=== PATIENT | male | born 1935 | race Caucasian/White ===

== ENCOUNTER 2018-11-02 15:50 | Emergency (ER) | payer MEDICARE ==
--- OUTSIDE RECORDS SUMMARY | 2018-11-02 15:52 | XMS REPORT ---
:1935 [facility] Organization [facility] Address [address] [place] [address] Dr. Wheeler [address] [place] [id number] Care Team Providers Name Role Phone Unavailable Unavailable Unavailable Problems This patient has no known problems. Allergies, Adverse Reactions, Alerts This patient has no known allergies or adverse reactions. Medications This patient has no known medications.
--- OUTSIDE RECORDS SUMMARY | 2018-11-02 15:53 | XMS REPORT | Summary of Care ---
:1935 Author Organization [facility] Address [address] [place] [address] Care Team Providers Name Role Phone Devin Welch MD Insurance Hmo Raquel Jenkins MD Primary Care Provider Reason for Referral MRI/CAT Scan (STAT) Status Reason Specialty Diagnoses / Referred By Referred To Procedures Contact Contact New Request Diagnostic Diagnoses Altered mental status, unspecified altered mental status type Geovani Layton, Radiology Procedures CT HEAD WO CONTRAST [address] [place] [address] [place] [address] MRI/CAT Scan (STAT) Status Reason Specialty Diagnoses / Referred By Referred To Procedures Contact Contact New Request Diagnostic Diagnoses Altered mental status, unspecified altered mental status type Geovani Layton, Radiology Procedures CT HEAD WO CONTRAST [address] [place] [address] [place] [address] Reason for Visit Reason Comments Altered mental status Auth/Cert Status Reason Specialty Diagnoses / Referred By Referred To Procedures Contact Contact Emergency Medicine Diagnoses [facility] Emergency Dept [address] [place] [address] [place] [address] Encounter Details Date Type Department Care Team Description 09/06/2018 Emergency ADC-Emergency Geovani Layton MD Altered mental status, unspecified altered mental status type (Primary Dx); Department [address] [facility] Dehydration [address] [place] [address] [address] [place] [id number] [place] [id number] [phone] Allergies No Known Allergiesdocumented as of this encounter (statuses as of 09/06/2018) Medications Medication Sig Dispensed Refills Start Date End Date Status cholecalciferol, vitamin Take 1,000 Units 0 Active D3, (VITAMIN D3) 1,000 by mouth daily. unit tabletIndications: Vitamin D deficiency MULTIVIT-MIN/FOLIC/VIT Take by mouth 0 Active K/LYCOP (ONE-A-DAY MEN'S daily. MULTIVITAMIN ORAL) finasteride 5 mg tablet Take 1 tablet by 90 tablet 3 02/09/2018 Active mouth daily. vitamin B-6 (VITAMIN Take 100 mg by 0 Active B-6) 100 mg tablet mouth daily. buPROPion XL (WELLBUTRIN Take 1 tablet by 90 tablet 3 03/22/2018 Active XL) 150 mg 24 hr mouth daily. tabletIndications: Other depression, Severe dementia levothyroxine 50 mcg Take 1 tablet by 90 tablet 3 04/06/2018 Active tabletIndications: mouth every Acquired hypothyroidism morning. levoFLOXacin 500 mg Take 1 tablet by 14 tablet 3 08/04/2018 Active tabletIndications: mouth every 24 Recurrent UTI (twenty-four) hours. documented as of this encounter (statuses as of 09/06/2018) Active Problems Problem Noted Date Gross hematuria 02/07/2018 Hematuria 02/07/2018 Other specified hypothyroidism 10/07/2015 Essential hypertension 10/07/2015 Agitation 10/07/2015 Vitamin D deficiency 10/07/2015 BPH (benign prostatic hyperplasia) Overview: had recurrent UTIs, then had stones and urethra dilated??? documented as of this encounter (statuses as of 09/06/2018) Immunizations Name Administration Dates Next Due Influenza High Dose 11/18/2017, 12/23/2016 Influenza Virus Vaccine 11/20/2015 Pneumococcal 13 Conjugate, PCV13 (Prevnar 13) 04/04/2016 Pneumococcal Polysaccharide, PPSV23 (PNEUMOVAX) 06/10/2017 documented as of this encounter Social History Tobacco Use Types Packs/Day Years Used Date Never Smoker Smokeless Tobacco: Never Used Alcohol Use Drinks/Week oz/Week Comments No Sex Assigned at Date Recorded Not on file Job Start Date Occupation Industry Not on file Not on file Not on file Travel History Travel Start Travel End No recent travel history available. 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 Altered mental status, unspecified altered mental status type R41.82 780.97 2. Dehydration E86.0 276.51 NO LIFE-THREATENING FINDINGS ON TODAY'S EXAM. YOUR PRESCRIPTIONS : Check out SHADOW for medication discounts Medication List ASK your doctor about these medications buPROPion XL 150 mg 24 hr tablet Commonly known as: WELLBUTRIN XL Take 1 tablet by mouth daily. finasteride 5 mg tablet Commonly known as: PROSCAR Take 1 tablet by mouth daily. levoFLOXacin 500 mg tablet Commonly known as: LEVAQUIN Take 1 tablet by mouth every 24 (twenty-four) hours. levothyroxine 50 mcg tablet Commonly known as: SYNTHROID Take 1 tablet by mouth every morning. ONE-A-DAY MEN'S MULTIVITAMIN ORAL VITAMIN B-6 100 mg tablet Generic drug: vitamin B-6 VITAMIN D3 1,000 unit tablet Generic drug: cholecalciferol (vitamin D3) ER precautions and follow up : 1. Return to ER if your symptoms should worsen or fail to improve within 72 hours. 2. The care provided in the emergency room was for acute problems only. 3. You should follow up with your primary care provider within 72 hours. 4. Fill and take all your medications as prescribed. 5. Make sure you are staying adequately hydrated. Busque attencion immediatamente si usted tiene los sitomas sigue, vuelve peor o si hay sitomas nuevas o para cualquiera preoccupacion incluyendo dolor del pecho , falta aire, se siente debile, mas fievre, mas dolor, nausea, vomitando, sangrando que no es normal, confusion, baja or pierdas conciencia. MAY FOLLOW-UP WITH A PROVIDER OF YOUR CHOICE, SUCH : 1. A PHYSICIAN OF YOUR CHOICE 2. [facility], . LOCATIONS IN [facility] 3. [facility], [address] [place] [address]; [phone] OR, IF YOU WISH TO FOLLOW-UP WITHIN THE [facility], MAY TRY THESE OPTIONS (CLINIC APPOINTMENTS AVAILABLE ON [id number] BASIS): 1. SCHEDULE AN APPOINTMENT ONLINE AT WWW.[facility] 2. OR CALL THE [facility] AT OR 3. OR CALL YOUR [facility] PHYSICIAN'S OFFICE DIRECTLY IF YOU ARE ALREADY AN ESTABLISHED [facility] PATIENT. [facility] RETURN TO WORK / SCHOOL EXCUSE Jian Jackson WAS SEEN IN THE ER AND DISCHARGED 09/06/2018 TODAY, 11:15 PM & May return to Work / School / Incarceration on X with activity as tolerated indicated below. ___The following limitations apply until pt is seen by Physician and cleared to return to normal activity. _X_ Off for two days and return to activity as tolerated at work or school ___ No Sports ___ No work ___ Do not return until fever free for 24 hours. ___ No school GEOVANI LAYTON Jr., MD [facility] EMERGENCY DEPRTMENT [address] [place] [address] [place] [address] ### The patient may have been given Narcotic pain medications during their stay in the ED that may show up on a Drug Screen. The hospital discharge paper work will identify these medications. AttachmentsThe following attachments cannot be sent through Care Everywhere.Confusion (Nigerien)Dehydration (Adult) (Nigerien)documented in this encounter Plan of Treatment Date Type Specialty Care Team Description 12/04/2018 Office Visit Internal Medicine Raquel Jenkins MD [address] [place] [address] [address], [place] [address] [phone] Name Type Priority Associated Diagnoses Date/Time CT HEAD WO CONTRAST IMAGING STAT Altered mental status, 09/06/2018 9:17 PM CDT unspecified altered mental status type Health Maintenance Due Date Last Done Comments Medicare Wellness Visit 2002 INFLUENZA VACCINE 10/11/2018 11/18/2017, 12/23/2016, 11/20/2015, Additional history exists DTaP,Tdap,and Td Vaccines 02/19/2019 Postponed from (1 - Tdap) 1956 (Insurance / Financial) Zoster Recombinant Vaccine 02/19/2019 Postponed from (SHINGRIX) (1 of 2) 10/23/1987 (Insurance / Financial) PNEUMOCOCCAL VACCINES 65+ Completed 06/10/2017, 04/04/2016 documented as of this encounter Procedures Procedure Name Priority Date/Time Associated Diagnosis Comments ETHANOL STAT 09/06/2018 10:20 Altered mental Results for this PM CDT status, unspecified procedure are in altered mental the results status type section. BASIC METABOLIC STAT 09/06/2018 10:20 Altered mental Results for this PANEL (NA, K, CL, PM CDT status, unspecified procedure are in CO2, GLUCOSE, BUN, altered mental the results CREATININE, CA) status type section. HEPATIC FUNCTION STAT 09/06/2018 10:20 Altered mental Results for this PANEL ([id number]) PM CDT status, unspecified procedure are in (ALB,T.PRO,BILI altered mental the results T,BU/BC,ALT,AST,ALK status type section. PHOS) THYROID STIMULATING STAT 09/06/2018 10:20 Altered mental Results for this HORMONE PM CDT status, unspecified procedure are in altered mental the results status type section. FREE T4 STAT 09/06/2018 10:20 Altered mental Results for this PM CDT status, unspecified procedure are in altered mental the results status type section. TROPONIN I STAT 09/06/2018 10:20 Altered mental Results for this PM CDT status, unspecified procedure are in altered mental the results status type section. LIPASE STAT 09/06/2018 10:20 Altered mental Results for this PM CDT status, unspecified procedure are in altered mental the results status type section. ADC / [facility] - DRUG STAT 09/06/2018 9:43 Altered mental Results for this SCREEN TRIAGE PM CDT status, unspecified procedure are in altered mental the results status type section. URINALYSIS STAT 09/06/2018 9:43 Altered mental Results for this PM CDT status, unspecified procedure are in altered mental the results status type section. CT HEAD WO CONTRAST STAT 09/06/2018 9:17 Altered mental PM CDT status, unspecified altered mental status type Procedure Note - [facility], Radiant Results Inft User - 09/06/2018 9:27 PM CDT * * * * * * * * ORIGINAL REPORT * * * * * * * * EXAM: CT HEAD WO CONTRAST HISTORY: Altered mental status (AMS), unclear cause COMPARISON: CT head dated 12/31/2016. TECHNIQUE: CT head was obtained and reconstructed into axial, coronal and sagittal projection images. FINDINGS: Focal soft tissue swelling and increased density is seen at the vertex. No calvarial fracture is identified. Symmetric prominence of the caliber sulci and ventricles, commensurate with the moderate observed degree of central cerebral volume loss. Cerebellar volume loss is also noted. No hydrocephalus, midline shift or pathological extra-axial fluid collection is present. The basal cisterns are unremarkable. There is no acute intracranial hemorrhage or significant mass effect. No parenchymal attenuation abnormality. The gupta-white matter differentiation is preserved. The mastoid air cells and paranasal air sinuses are clear. The central skull base is unremarkable. Scattered atherosclerotic calcifications affect the carotid siphons. IMPRESSION Small scalp hematoma is seen at the vertex without underlying calvarial defect. No acute intra-abdominal abnormality is identified. Moderate cerebral and cerebellar volume loss. CBC WITH DIFFERENTIAL STAT 09/06/2018 9:07 PM Altered mental Results for this CDT status, unspecified procedure are in altered mental the results status type section. ACTIVATED PARTIAL STAT 09/06/2018 9:07 PM Altered mental Results for this THRMPLAS MARTHA CDT status, unspecified procedure are in altered mental the results status type section. PROTHROMBIN TIME / STAT 09/06/2018 9:07 PM Altered mental Results for this INR CDT status, unspecified procedure are in altered mental the results status type section. CBC WITH DIFF Routine 09/06/2018 9:07 PM Altered mental Results for this CDT status, unspecified procedure are in altered mental the results status type section. documented in this encounter Results ETHANOL (09/06/2018 10:20 PM CDT) ALCOHOL <10 mg/dL [facility] Specimen Blood - VENOUS Narrative Performed At <10 Negative [facility] 50-100 Toxic >100 Depression of PRIVATE CLIENT ADVISOR >400 Fatalities Reported Performing Organization Address [facility] [place] Phone Number [facility] CLIA: [id number], [address] [place] [address] FREE T4 (09/06/2018 10:20 PM CDT) FREE T4 1.37 0.78 - 2.20 ng/dL [facility] Specimen Blood - VENOUS Performing Organization Address [facility] [place] Phone Number [facility] CLIA: [id number], [address] [place] [address] THYROID STIMULATING HORMONE (09/06/2018 10:20 PM CDT) TSH 2.67 0.45 - 4.70 mIU/L [facility] Specimen Blood - VENOUS Performing Organization Address [facility] [place] Phone Number [facility] CLIA: [id number], [address] [place] [address] Troponin I (09/06/2018 10:20 PM CDT) TROPONIN I 0.031 <=0.034 ng/mL [facility] Specimen Blood - VENOUS Narrative Performed At Equal or Less than 0.034 ng/ml---Normal [facility] Note: Cardiac troponin begins to rise 3-4 hours after the onset of ischemia. Repeat in 4-6 hours if the sample was drawn within 3-4 hours of the onset of the symptom and found normal. Between 0.035 and 0.120 ng/mL--- Borderline. Questionable myocardial injury or necrosis Note: Serial measurement may be necessary to confirm or exclude the diagnosis of myocardial injury or necrosis; Clinical correlation (symptoms, EKGs, imaging studies, and others) required; Repeat in 4-6 hours if clinically indicated. Equal or Higher than 0.121 ng/mL---Abnormal. Myocardial Injury or Necrosis Likely Biotin has been reported to cause a negative bias, interpret results relative to patient's use of biotin. Performing Organization Address [facility] [place] Phone Number [facility] CLIA: [id number], [address] [place] [address] Lipase Serum (09/06/2018 10:20 PM CDT) LIPASE 77 0 - 220 U/L [facility] Specimen Blood - VENOUS Performing Organization Address City/[facility] Phone Number [facility] CLIA: [id number], [address] [place] [address] Hepatic Function Panel (ALB, T.PRO, BILI T, BU/BC, ALT, AST, ALK PHOS) (2018 10:20 PM CDT) TOTAL BILI 0.7 0.1 - 1.1 mg/dL [facility] BILI UNCON 0.6 0.1 - 1.1 mg/dL [facility] BILI CONJ 0.0 0.0 - 0.3 mg/dL [facility] T PROTEIN 7.4 6.3 - 8.2 g/dL [facility] ALBUMIN 3.8 3.5 - 5.0 g/dL [facility] ALK PHOS 82 34 - 122 U/L [facility] ALT(SGPT) 17 9 - 51 U/L [facility] AST(SGOT) 24 13 - 40 U/L [facility] Specimen Blood - VENOUS Performing Organization Address City/[facility] Phone Number [facility] CLIA: [id number], [address] [place] [address] Basic Metabolic Panel (NA, K, CL, CO2, GLUCOSE, BUN, CREATININE, CA) (2018 10:20 PM CDT) Pathologist [facility] NA 143 135 - 145 [facility] mmol/L [facility] K 4.4 3.5 - 5.0 [facility] mmol/L [facility] CL 108 98 - 108 mmol/L [facility] CO2 TOTAL 28 23 - 31 mmol/L [facility] AGAP 7 2 - 16 [facility] BUN 21 7 - 23 mg/dL [facility] GLUCOSE 113 (H) 70 - 110 mg/dL [facility] CREATININE 1.12 0.60 - 1.25 [facility] mg/dL [facility] CALCIUM 9.6 8.6 - 10.6 [facility] mg/dL HOSPITAL LABORATORY eGFR Calculation 63.1 mL/min/1.73m2 [facility] (Non-[facility] LABORATORY Citizen [place]) eGFR Calculation 76.5 mL/min/1.73m2 [facility] () [facility] Specimen Blood - VENOUS Narrative Performed At Association of Glomerular Filtration Rate (GFR) [facility] and Staging of Kidney Disease* + + +- + | GFR (mL/min/1.73 m2)| With Kidney Damage|Without Kidney Damage + + +- + |>90| Stage one| Normal + + +- + |60-89|S tage two| Decreased GFR + + +- + |30-59|S tage three| Stage three + + +- + |15-29|S tage four | Stage four + + +- + |<15 (or dialysis)|Stage five | Stage five + + +- + *Each stage assumes the associated GFR level has been in effect for at least three months.Stages 1 to 5, with or without kidney disease, indicate chronic kidney disease. Notes: Determination of stages one and two (with eGFR >59mL/min/1.73 m2) requires estimation of kidney damage for at least three months as defined by structural or functional abnormalities of the kidney, manifested by either: Pathological abnormalities or Markers of kidney damage (including abnormalities in the composition of the blood or urine or abnormalities in imaging tests). Performing Organization Address City/State/Zipcode Phone Number [facility] CLIA: [id number], [address] [place] [address] ADC / [facility] - DRUG SCREEN TRIAGE (09/06/2018 9:43 PM CDT) BENZO U Negative Negative [facility] IRIS U Negative Negative [facility] AMPHET Negative Negative [facility] THC Negative Negative [facility] METHADONE Negative Negative [facility] Meth U Negative Negative [facility] OPIATES Presumptive Negative [facility] Positive (A) HOSPITAL [facility] Cocaine Metabolite Negative Negative [facility] PROPOXY Negative Negative [facility] Tric U Negative Negative [facility] PCP Negative Negative [facility] OXYCOD Negative Negative [facility] Specimen Urine - URINE, CLEAN CATCH Narrative Performed At Urine Drug Cutoff Ranges [facility] Benzodiazepines: 150 ng/mL Barbiturates: 200 ng/mL Amphetamine: 500 ng/mL Cannabinoids: 50ng/mL Methadone: 200 ng/mL Methamphetamine: 500 ng/mL Opiates: 100 ng/mL or 2000 ng/mL Cocaine: 150 ng/mL Propoxyphene:300 ng/mL Tricyclics:300 ng/mL Oxycodone: 100 ng/mL PCP: 25ng/mL The results are to be used only for medical (i.e., treatment) purposes. Unconfirmed screening results must not be used for non-medical purposes (e.g., employment testing, legal testing). Performing Organization Address [facility] [place] Phone Number [facility] CLIA: [id number], [address] [place] [address] Urinalysis (09/06/2018 9:43 PM CDT) APPEARANCE Clear Clear [facility] COLOR Yellow Yellow [facility] PH 5.5 4.8 - 8.0 [facility] SP GRAVITY >=1.030 1.003 - 1.030 [facility] GLU U QUAL Negative Negative [facility] BLOOD Negative Negative [facility] KETONES 15 mg/dL (A) Negative [facility] PROTEIN 30 mg/dL (A) Negative [facility] UROBILIN 0.2 mg/dL 0-1.0 mg/dL [facility] BILIRUBIN Negative Negative [facility] NITRITE Negative Negative [facility] LEUK LEONEL Negative Negative [facility] RBC/HPF 5 (H) 0 - 3 HPF [facility] WBC/HPF 5 0 - 5 HPF [facility] BACTERIA Few (A) Negative [facility] MUCOUS Slight (A) Negative LPF [facility] AMORPHOUS Few HPF [facility] SQ EPITH 30 HPF [facility] Specimen Urine - URINE, CLEAN CATCH Performing Organization Address [facility] [place] Phone Number [facility] CLIA: [id number], [address] [place] [address] CBC WITH DIFFERENTIAL (09/06/2018 9:07 PM CDT) WBC 5.96 4.20 - 10.70 [facility] 10*3/L HOSPITAL LAB[facility]ATORY RBC 4.95 4.26 - 5.52 [facility] 10*6/L [facility] HGB 13.9 12.2 - 16.4 [facility] g/dL [facility] HCT 37.9 (L) 38.4 - 49.3 % [facility] MCV 76.6 (L) 81.7 - 95.6 fL [facility] MCH 28.1 26.1 - 32.7 pg [facility] MCHC 36.7 (H) 31.2 - 35.0 [facility] g/dL [facility] RDW-SD 41.7 38.5 - 51.6 fL [facility] RDW-CV 15.1 12.1 - 15.4 % [facility] PLT 148 (L) 150 - 328 [facility] 10*3/L [facility]PITAL [facility] MPV 10.8 9.8 - 13.0 fL [facility] NRBC/100 WBC 0.0 0.0 - 10.0 /100 [facility] WBCs [facility] NRBC x10^3 <0.01 10*3/L [facility] GRAN MAT (NEUT) % 74.6 % [facility] IMM GRAN % 0.20 % [facility] LYMPH % 14.9 % [facility] MONO % 9.9 % [facility] EOS % 0.2 % [facility] BASO % 0.2 % [facility] GRAN MAT x10^3(ANC) 4.45 1.99 - 6.95 [facility] 10*3/uL [facility]ITAL [facility] IMM GRAN x10^3 <0.03 0.00 - 0.06 [facility] 10*3/uL [facility] LYMPH x10^3 0.89 (L) 1.09 - 3.23 [facility] 10*3/uL [facility] MONO x10^3 0.59 0.36 - 1.02 [facility] 10*3/uL [facility]ITAL LAB[facility]ORY EOS x10^3 <0.03 (L) 0.06 - 0.53 [facility] 10*3/uL [facility] BASO x10^3 <0.03 0.01 - 0.09 [facility] 10*3/uL [facility] Specimen Blood - VENOUS Performing Organization Address City/State/Zipcode Phone Number [facility] CLIA: [id number], [address] [place] [address] Prothrombin Time (PT) / INR (09/06/2018 9:07 PM CDT) PROTIME PATIENT 13.5 12.0 - 14.7 [facility] Seconds [facility] INR 1.1Comment: Normal [facility] INR <1.1; Warfarin HOSPITAL Therapeutic range LABORATORY 2.0 to 3.0 or 2.5 to 3.5, depending upon the indications. Specimen Blood - VENOUS Performing Organization Address [facility] Phone Number [facility] CLIA: [id number], [address] [place] [address] aPTT (09/06/2018 9:07 PM CDT) APTT Patient 27 23 - 38 Seconds [facility] Specimen Blood - VENOUS Narrative Performed At The [facility] patient population mean normal value [facility] [facility] for aPTT is 30 seconds. Performing Organization Address [facility] Phone Number [facility] CLIA: [id number], [address] [place] [address] [facility] documented in this encounter Visit Diagnoses Diagnosis Altered mental status, unspecified altered mental status type - Primary Dehydration documented in this encounter Administered Medications Medication Order MAR Action Action Date Dose Rate Site NaCl 0.9% (NS) bolus New Bag 09/06/2018 10:52 PM CDT 1,000 mL 999 mL/hr infusion 1,000 mL at 999 mL/hr, 1,000 mL, IV Infusion, ONCE, 1 dose, 09/07/18 at 0000, STAT documented in this encounter Insurance Payer Benefit Plan / Subscriber ID Effective Phone Address Type Group Dates [employer] MEDICARE [id number] 2016-Prese Medicare Adv HEALTHCARE - COMPLETE [facility] MEDICARE documented as of this encounter"
--- OUTSIDE RECORDS SUMMARY | 2018-11-02 15:53 | XMS REPORT | Summary of Care ---
:1935 Author Organization [facility] - Health Address [address] [place] [id number] Care Team Providers Name Role Phone Devin Welch MD Insurance Hmo Raquel Jenkins MD Primary Care Provider Reason for Visit Reason Comments Notification Encounter Details Date Type Department Care Team Description 09/18/2018 Telephone [facility] Pediatric and Raquel Jenkins, Notification Adult Primary Care- [place] [address] [place] [address] [address] [facility] [address], [address] [place] [address] [place] [address] Allergies No Known Allergiesdocumented as of this encounter (statuses as of 09/18/2018) Medications Medication Sig Dispensed Refills Start Date End Date Status cholecalciferol, Take 1,000 0 Suspended vitamin D3, (VITAMIN Units by mouth D3) 1,000 unit daily. tabletIndications: Vitamin D deficiency MULTIVIT-MIN/FOLIC/VIT Take by mouth 0 Suspended K/LYCOP (ONE-A-DAY daily. MEN'S MULTIVITAMIN ORAL) finasteride 5 mg tablet Take 1 tablet 90 tablet 3 02/09/2018 Suspended by mouth daily. vitamin B-6 (VITAMIN Take 100 mg by 0 Suspended B-6) 100 mg tablet mouth daily. buPROPion XL Take 1 tablet 90 tablet 3 03/22/2018 Suspended (WELLBUTRIN XL) 150 mg by mouth 24 hr daily. tabletIndications: Other depression, Severe dementia levothyroxine 50 mcg Take 1 tablet 90 tablet 3 04/06/2018 Suspended tabletIndications: by mouth every Acquired hypothyroidism morning. levoFLOXacin 500 mg Take 1 tablet 14 tablet 3 08/04/2018 Suspended tabletIndications: by mouth every Recurrent UTI 24 (twenty-four) hours. ZINC ORAL Take 25 mg by 0 Suspended mouth daily. documented as of this encounter (statuses as of 09/18/2018) Active Problems Problem Noted Date Elevated troponin 09/18/2018 Gross hematuria 02/07/2018 Hematuria 02/07/2018 Other specified hypothyroidism 10/07/2015 Essential hypertension 10/07/2015 Agitation 10/07/2015 Vitamin D deficiency 10/07/2015 BPH (benign prostatic hyperplasia) Overview: had recurrent UTIs, then had stones and urethra dilated??? documented as of this encounter (statuses as of 09/18/2018) Immunizations Name Administration Dates Next Due Influenza [...] of this encounter Last Filed Vital Signs Not on filedocumented in this encounter Plan of Treatment Date Type Specialty Care Team Description 12/04/2018 Office Visit Internal Medicine Raquel Jenkins MD [address] [place] [address] Dr [address] [place] [id number] Health Maintenance Due Date Last Done Comments Medicare Wellness Visit 2002 INFLUENZA VACCINE 10/11/2018 11/18/2017, 12/23/2016, 11/20/2015, Additional history exists DTaP,Tdap,and Td Vaccines 02/19/2019 Postponed from (1 - Tdap) 1956 (Insurance / Financial) Zoster Recombinant Vaccine 02/19/2019 Postponed from ([facility]) (1 of 2) 10/23/1987 (Insurance / Financial) PNEUMOCOCCAL VACCINES 65+ Completed 06/10/2017, 04/04/2016 documented as of this encounter Results Not on filedocumented in this encounter Insurance Payer Benefit Plan / Subscriber ID Effective Phone Address Type Group Dates [employer] MEDICARE [id number] 2016-Prese Medicare Adv HEALTHCARE - COMPLETE nt HMO MANAGED MEDICARE documented as of this encounter
--- OUTSIDE RECORDS SUMMARY | 2018-11-02 15:53 | XMS REPORT | Summary of Care ---
:1935 Author Organization [facility] - Health Address [address] [place] [address] Care Team Providers Name Role Phone Devin Welch MD Insurance Hmo Raquel Jenkins MD Primary Care Provider Reason for Referral (Routine) Status Reason Specialty Diagnoses / Referred By Referred To Procedures Contact Contact New Request Diagnoses Confusion Haider Eden MBBS Syst, Procedures Discharge Follow-up: PCP REFERRING/PCP PROV NOT IN SYST; [address] [place] [address] Referring/Pcp [place] [address] Reason for Visit Reason Comments Confusion Auth/Cert Status Reason Specialty Diagnoses / Referred By Referred To Procedures Contact Contact Emergency Medicine Diagnoses [facility] Emergency Dept [address] [place] [address] [place] [address] Encounter Details Date Type Department Care Team Description 09/18/2018 - Emergency [facility] Medicine Surgery Gretel Rodas, DO [address], [place] [id number] Elevated troponin 09/21/2018 Unit Haider Eden MBBS [address] [place] [address] [place] [address] [place], [place] [id number] Allergies No Known Allergiesdocumented as of this encounter (statuses as of 09/21/2018) Medications Medication Sig Dispensed Refills Start Date [...] mouth every 24 Recurrent UTI (twenty-four) hours. ZINC ORAL Take 25 mg by 0 Active mouth daily. documented as of this encounter (statuses as of 09/21/2018) Active Problems Problem Noted Date Elevated troponin 09/18/2018 Gross hematuria 02/07/2018 Hematuria 02/07/2018 Other specified hypothyroidism 10/07/2015 Essential hypertension 10/07/2015 Agitation 10/07/2015 Vitamin D deficiency 10/07/2015 BPH (benign prostatic hyperplasia) Overview: had recurrent UTIs, then had stones and urethra dilated??? documented as of this encounter (statuses as of 09/21/2018) Immunizations Name Administration Dates Next Due Influenza [...] Sign Reading Time Taken Comments Blood Pressure 101/65 09/21/2018 3:58 PM CDT Pulse 77 09/21/2018 3:58 PM CDT Temperature 37.1 C (98.8 F) 09/21/2018 3:58 PM CDT Respiratory Rate 18 09/21/2018 3:58 PM CDT Oxygen Saturation 99% 09/21/2018 3:58 PM CDT Inhaled Oxygen Concentration - - Weight 80.7 kg (178 lb) 09/18/2018 10:03 AM CDT Height 188 cm (6' 2") 09/18/2018 10:03 AM CDT Body Mass Index 22.85 09/18/2018 10:03 AM CDT documented in this encounter Discharge Instructions Lala Culver RN - 09/21/2018 Patient Discharge Instructions Discharge date: 09/21/2018 Procedure(s): Discharge Orders Discharge Follow-up: PCP REFERRING/PCP PROV NOT IN SYST; 1 Week To PCP: REFERRING/PCP PROV NOT IN SYST [[id number]] Patient's Preferred Location: [place] Discharge Disposition: Senior Care Resident, (ATI) When (Patients with risk for unplanned readmission score over 16 or those noted as Hospital Dependent should follow up within 7 days with PCP or primary DX specialist): 1 Week Risk of Unplanned Readmission:( Score greater than 16 indicates high risk) 8 Regular Diet; Texture: Regular. Texture Regular. Diabetic: No Discharge Condition - Discharge Condition: FAIR Discharge Activity Discharge Activity: As Tolerated No VTE Prophylaxis given- Patient low risk for VTE; Not ordered during hospitalization Take Home Medications These are medications ordered for you by your healthcare provider. Do not take any other medications or supplements unless advised by your healthcare provider. Current Discharge Medication List CONTINUE these medications which have NOT CHANGED Details ZINC ORAL Take 25 mg by mouth daily. levoFLOXacin 500 mg tablet Take 1 tablet by mouth every 24 (twenty-four) hours. Qty: 14 tablet, Refills: 3 Associated Diagnoses: Recurrent UTI levothyroxine 50 mcg tablet Take 1 tablet by mouth every morning. Qty: 90 tablet, Refills: 3 Associated Diagnoses: Acquired hypothyroidism buPROPion XL (WELLBUTRIN XL) 150 mg 24 hr tablet Take 1 tablet by mouth daily. Qty: 90 tablet, Refills: 3 Associated Diagnoses: Other depression; Severe dementia vitamin B-6 (VITAMIN B-6) 100 mg tablet Take 100 mg by mouth daily. finasteride 5 mg tablet Take 1 tablet by mouth daily. Qty: 90 tablet, Refills: 3 MULTIVIT-MIN/FOLIC/VIT K/LYCOP (ONE-A-DAY MEN'S MULTIVITAMIN ORAL) Take by mouth daily. cholecalciferol, vitamin D3, (VITAMIN D3) 1,000 unit tablet Take 1,000 Units by mouth daily. Associated Diagnoses: Vitamin D deficiency Follow-up appointments: Your follow up appointment with your surgeon has been made. Appointment Date: , Appointment Time . For questions regarding follow-up instructions call the Healthcare Hotline at or If you experience any of the following symptoms , please follow up with . For worsening symptoms/changing condition/problems or questions: Non-emergency/urgent: Call the Healthcare Hotline at or or Emergency: Go to the closest emergency room or call 911 Translated by Date Time If you receive the patient satisfaction survey by mail please complete and return and let us know how we are doing. TOBACCO AVOIDANCE Exposure to tobacco either from smoking or from second hand (environmental) smoke or smokeless tobacco (snuff) is damaging to your health. This information is to encourage everyone to avoid tobacco exposure. It is recommended that you: ? If you smoke or use smokeless tobacco, we encourage you to quit. ? If you have already quit smoking, continue your good work! ? If you do not smoke or use smokeless tobacco, do not start. ? Avoid secondhand smoke. Additional Resources You may want to contact these organizations for further information on smoking and how to quit. [place] [employer], http://www.lungusa.org/stop-smoking/ [place] [employer], http://www.cancer.org/Healthy/StayAwayfromTobacco/index [place] [employer], http://www.heart.org/HEARTORG/GettingHealthy/ QuitSmoking/Quit-Smoking_[facility]_001085_SubHomePage.jsp AttachmentsThe following attachments cannot be sent through Care Everywhere.Confusion (Solomon Islander)documented in this encounter Progress Notes Jenny Collier LBSW - 09/21/2018 2:41 PM CDTSubjective Patient ID: Jian Jackson is a 82 year old male. SW worked with family and [facility] to have him placed under retirement care. Family will be paying private pay and then meeting with and elder law assistant prosecuting attorney to disucuss Medicaid pending status and options thereafter. Pt has been approved for placement today. Pt's daughter will be meeting with RJ in admissions around 1600 to complete admission paperwork. SW will arrange for ambulance transport and complete PASRR. [facility]: [phone] [place] [facility] Tender - Care Management [facility] [phone] [email or web address] Review of Systems Objective Physical Exam Assessment/Plan [facility] [place] [employer] Tender - Care Management [facility] [phone] [email or web address] Haider Rodas MBBS - 09/21/2018 12:09 PM CDT Hospitalist Medicine Progress Note SUBJECTIVE: No new sx PHYSICAL EXAM: Vitals: 09/20/18 2004 09/21/18 0024 09/21/18 0414 09/21/18 0755 BP: 131/87 114/80 120/69 123/77 Pulse: 71 75 60 57 Resp: 20 20 18 18 Temp: 36.8 C (98.2 F) 36.8 C (98.2 F) 36.6 C (97.9 F) 36.6 C ( 97.8 F) TempSrc: Oral Oral Oral Oral SpO2: 100% 100% 96% 98% Weight: Height: Respiratory: No chest wall tenderness, equal and symmetric expansion b/l CTA b/l Cardiovascular : Regular rate and rhythm S1S2 normal. No murmur. No cyanosis clubbing or edema LABS/imaging- reviewed pertinent labs as below: No results found for this or any previous visit (from the past 24 hour(s)). Current Meds reviewed Current Facility-Administered Medications: buPROPion XL (WELLBUTRIN XL) tablet 150 mg, 150 mg, Oral, DAILY, Haider Eden MBBS, 150 mg at 08/12/19 0808 levothyroxine (SYNTHROID) tablet 50 mcg, 50 mcg, Oral, QAM-0600, Haider Eden MBBS, 50 mcg at 09/21/18 0521 acetaminophen (TYLENOL) tablet 650 mg, 650 mg, Oral, Q6HPRN, Haider Eden MBBS ASSESSMENT/PLAN Behavioural changes sec to dementia: deemed unsafe d/c back to hotel without family. Await placement Hypothyroidism: continue t4 DVT prophylaxis scd Disposition await PR placemet Code status CPR Jenny Mckeon LBSW - 09/21/2018 11:41 AM CDTSubjective Patient ID: Jian Jackson is a 82 year old male. Care Management Social Functional Assessment Patient Name: Jian Jackson Age: [age] year old Sex: male Patient's Previous Admission Date at [facility]: 02/07/2018 Current diagnosis and co-morbidities: elevated troponin Readmission Questions: Was patient discharged from any acute care hospital within the last 30 days: No Social Functional Assessment: Primary language spoken/preferred: [place] Islander Mental Status: Alert & Oriented to Person Information given by: Other Name and phone number of person giving information: Nancy Nicole, ex Patient's support system: Other Name and number of support system: Nancy Nicole, ex [phone] Primary Hydraulic Repairer: Self MPOA: No Living Arrangement: Other Other living arrangement: Pt was residing in a hotel per exwife Persons living in home: Self Barriers to returning home: Declining function;Lack of 24/7 supervision Baseline functional status- ambulation: Requires minimal to moderate assistance Functional status-baseline personal care: Requires minimal to moderate assistance Baseline functional status- driving: Dependent Baseline functional status- grocery shopping: Dependent Functional status-baseline housekeeping: Dependent Functional status-baseline meal prep: Dependent Current functional status same as prior: Yes Do you have a PCP?: Yes Name of PCP: Dr. Jenkins Home Health Care Agency: No Provider Services: No DME Company: No Hemodialysis: No Community resources utilized: None Funding Resources: Medicare Replacement Medicare Replacement name and information: [facility] Prescription coverage plan: Medicare Part D Pharmacy where meds are filled: Other Other pharmacy: [facility] Anticipated services prior to disharge: Continue Medical Eval Expected mode of discharge transportation: Same as support system Additional Recommendations for DC: Medical clearance and watermelon inspector care placement Additional info required for discharge planning: Pending medical evaluation Recommended discharge plan: New placement SFA Complete: Social Functional Assessment complete: Yes Alcohol Use Screening (AUDIT-C) How often do you have a drink containing alcohol?: Never SCORE: 0 Did patient elect to have resources provided: No Role of Care Management explained. Any issues or concerns with obtaining/affording your medications at home: no. Are you or your support system able to oyster picker medications at discharge: yes. Review of Systems Objective Physical Exam Assessment/Plan senior care care Medicaid pending [place] Tender - Care Management [facility] [phone] [email or web address] Haider Rodas MBBS - 09/20/2018 11:28 AM CDT Hospitalist Medicine Progress Note SUBJECTIVE: No new sx PHYSICAL EXAM: Vitals: 09/19/18 1900 09/20/18 0015 09/20/18 0439 09/20/18 0737 BP: 120/74 120/75 115/70 122/73 Pulse: 59 66 51 55 Resp: 17 18 18 18 Temp: 36.7 C (98.1 F) 36.7 C (98 F) 36.7 C (98 F) 36.5 C (97.7 F ) TempSrc: Oral Oral Oral Oral SpO2: 97% 98% 97% 98% Weight: Height: Respiratory: No chest wall tenderness, equal and symmetric expansion b/l CTA b/l Cardiovascular : Regular rate and rhythm S1S2 normal. No murmur. No cyanosis clubbing or edema LABS/imaging- reviewed pertinent labs as below: No results found for this or any previous visit (from the past 24 hour(s)). Current Meds reviewed Current Facility-Administered Medications: buPROPion XL (WELLBUTRIN XL) tablet 150 mg, 150 mg, Oral, DAILY, Haider Eden MBBS, 150 mg at 09/20/18 0802 levothyroxine (SYNTHROID) tablet 50 mcg, 50 mcg, Oral, QAM-0600, Haider Eden MBBS, 50 mcg at 09/20/18 0731 acetaminophen (TYLENOL) tablet 650 mg, 650 mg, Oral, Q6HPRN, Haider Eden MBBS ASSESSMENT/PLAN Behavioural changes sec to dementia: deemed unsafe d/c back t hotel without family. Await placement Hypothyroidism: continue t4 DVT prophylaxis scd Disposition await PR placemet Code status CPR Haider Rodas MBBS - 09/19/2018 11:29 AM CDT Hospitalist Medicine Progress Note SUBJECTIVE: No new sx PHYSICAL EXAM: Vitals: 09/18/18 1600 09/18/18 2000 09/19/18 0400 09/19/18 0800 BP: 133/83 94/77 114/76 128/71 Pulse: 72 72 72 73 Resp: 16 20 16 16 Temp: 36.7 C (98 F) 36.6 C (97.9 F) 36.8 C (98.2 F) 36.3 C (97.4 F) TempSrc: Oral Oral Oral Oral SpO2: 98% 97% 98% 96% Weight: Height: Respiratory: No chest wall tenderness, equal and symmetric expansion b/l CTA b/l Cardiovascular : Regular rate and rhythm S1S2 normal. No murmur. No cyanosis clubbing or edema LABS/imaging- reviewed pertinent labs as below: Recent Results (from the past 24 hour(s)) TROPONIN I Collection Time: 09/18/18 5:06 PM Result Value Ref Range TROPONIN I 0.040 (H) <=0.034 ng/mL TROPONIN I Collection Time: 09/19/18 4:32 AM Result Value Ref Range TROPONIN I 0.034 <=0.034 ng/mL Current Meds reviewed Current Facility-Administered Medications: [START ON 09/20/2018] buPROPion XL (WELLBUTRIN XL) tablet 150 mg, 150 mg, Oral, DAILY, Haider Eden MBBS [START ON 09/20/2018] levothyroxine (SYNTHROID) tablet 50 mcg, 50 mcg, Oral , QAM-0600, Haider Eden MBBS acetaminophen (TYLENOL) tablet 650 mg, 650 mg, Oral, Q6HPRN, Haider Eden MBBS ASSESSMENT/PLAN Behavioural changes sec to dementia: deemed unsafe d/c back without family. Await placement Hypothyroidism: continue t4 Elevated troponin: Mild elevation and now normal . CP free and sx free. Clinically non significant DVT prophylaxis scd Disposition await PR placemet Code status CPR documented in this encounter Plan of Treatment Date Type Specialty Care Team Description 12/04/2018 Office Visit Internal Medicine Raquel Jenkins MD [address] [place] [address] Dr Farrell [address] [place] [id number] Name Type Priority Associated Diagnoses Order Schedule EKG-12 LEAD ROUTINE HEART STATION Routine ONCE for 1 Occurrences starting 09/18/2018 until 09/18/2018 Health Maintenance Due Date Last Done Comments [...] encounter Procedures Procedure Name Priority Date/Time Associated Comments Diagnosis TROPONIN I Routine 09/19/2018 4:32 Results for this AM CDT procedure are in the results section. TROPONIN I Routine 09/18/2018 5:06 Results for this PM CDT procedure are in the results section. TROPONIN I Routine 09/18/2018 10:59 Results for this AM CDT procedure are in the results section. EKG-12 LEAD Routine 09/18/2018 10:44 AM CDT EKG-12 LEAD Routine 09/18/2018 8:32 AM CDT EKG-12 LEAD STAT 09/18/2018 8:29 AM CDT CBC WITH DIFFERENTIAL STAT 09/18/2018 7:27 Confusion Results for this AM CDT procedure are in the results section. CBC WITH DIFF Routine 09/18/2018 7:27 Confusion Results for this AM CDT procedure are in the results section. BASIC METABOLIC PANEL STAT 09/18/2018 7:27 Confusion Results for this (NA, K, CL, CO2, AM CDT procedure are in GLUCOSE, BUN, the results CREATININE, CA) section. TROPONIN I STAT 09/18/2018 7:27 Confusion Results for this AM CDT procedure are in the results section. MAGNESIUM Add-on 09/18/2018 7:27 Confusion Results for this AM CDT procedure are in the results section. NOTICE OF PRIVACY Routine 09/18/2018 7:18 PRACTICES AM CDT CONSENT/REFUSAL FOR Routine 09/18/2018 7:18 DIAGNOSIS AND AM CDT TREATMENT URINALYSIS STAT 09/18/2018 6:45 Confusion Results for this AM CDT procedure are in the results section. HOSPITAL ADM - MISC Routine 09/18/2018 12:01 AM CDT EMERGENCY DEPARTMENT Routine 09/18/2018 12:01 DOCUMENTS AM CDT documented in this encounter Results TROPONIN I (09/19/2018 4:32 AM CDT) TROPONIN I 0.034 <=0.034 ng/mL [facility] Specimen Blood - ARM, LEFT Narrative Performed At Equal or Less than 0.034 ng/ml---Normal [facility] Note: Cardiac troponin begins to [...] patient's use of biotin. Performing Organization Address City/State/Zipcode Phone Number [facility] CLIA: [id number], [address] [place] [address] TROPONIN I (09/18/2018 5:06 PM CDT) TROPONIN I 0.040 (H) <=0.034 ng/mL [facility] Specimen Blood - ARM, RIGHT Narrative Performed At Equal or Less than 0.034 ng/ml---Normal [facility] Note: Cardiac troponin begins to [...] patient's use of biotin. Performing Organization Address City/[facility] Phone Number [facility] CLIA: [id number], [address] [place] [address] TROPONIN I (09/18/2018 10:59 AM CDT) TROPONIN I 0.040 (H) <=0.034 ng/mL [facility] Specimen Blood - ARM, LEFT Narrative Performed At Equal or Less than 0.034 ng/ml---Normal [facility] Note: Cardiac troponin begins to [...] patient's use of biotin. Performing Organization Address City/[facility] Phone Number [facility] CLIA: [id number], [address] [place] [address] MAGNESIUM (09/18/2018 7:27 AM CDT) MAGNESIUM 2.1 1.7 - 2.4 mg/dL [facility] Specimen Blood - ARM, RIGHT Performing Organization Address City/State/Zipcode Phone Number [facility] CLIA: [id number], [address] [place] [address] CBC WITH DIFFERENTIAL (09/18/2018 7:27 AM CDT) WBC 5.51 4.20 - 10.70 [facility] 10*3/L [facility] RBC 5.00 4.26 - 5.52 [facility] 10*6/L [facility] HGB 14.0 12.2 - 16.4 [facility] g/dL [facility] HCT 38.6 38.4 - 49.3 % [facility] MCV 77.2 (L) 81.7 - 95.6 fL [facility] MCH 28.0 26.1 - 32.7 pg [facility] MCHC 36.3 (H) 31.2 - 35.0 [facility] g/dL [facility] RDW-SD 40.4 38.5 - 51.6 fL [facility] RDW-CV 14.6 12.1 - 15.4 % [facility] PLT 150 150 - 328 [facility] 10*3/L [facility] MPV 11.4 9.8 - 13.0 fL [facility] NRBC/100 WBC 0.0 0.0 - 10.0 /100 [facility] WBCs [facility] NRBC x10^3 <0.01 10*3/L [facility] GRAN MAT (NEUT) % 72.7 % [facility] IMM GRAN % 0.40 % [facility] LYMPH % 13.8 % [facility] MONO % 12.5 % [facility] EOS % 0.4 % [facility] BASO % 0.2 % [facility] GRAN MAT x10^3(ANC) 4.01 1.99 - 6.95 [facility] 10*3/uL HOSPITAL [facility]ORY IMM GRAN x10^3 <0.03 0.00 - 0.06 [facility] 10*3/uL [facility] LYMPH x10^3 0.76 (L) 1.09 - 3.23 [facility] 10*3/uL [facility] MONO x10^3 0.69 0.36 - 1.02 [facility] 10*3/uL HOSPITAL [facility] EOS x10^3 <0.03 (L) 0.06 - 0.53 [facility] 10*3/uL [facility] BASO x10^3 <0.03 0.01 - 0.09 [facility] 10*3/uL [facility] Specimen Blood - ARM, RIGHT Performing Organization Address [facility] Cent[facility]ode Phone Number [facility] CLIA: [id number], [address] [place] [address] Troponin I (09/18/2018 7:27 AM CDT) TROPONIN I 0.045 (H) <=0.034 ng/mL [facility] Specimen Blood - ARM, RIGHT Narrative Performed At Equal or Less than 0.034 ng/ml---Normal [facility] Note: Cardiac troponin begins to [...] patient's use of biotin. Performing Organization Address [facility] Cent[facility]ode Phone Number [facility] CLIA: [id number], [address] [place] [address] Basic Metabolic Panel (NA, K, CL, CO2, GLUCOSE, BUN, CREATININE, CA) (2018 7:27 AM CDT) NA 143 135 - 145 [facility] mmol/L HOS[facility]ITAL [facility] K 3.9 3.5 - 5.0 [facility] mmol/L [facility] CL 111 (H) 98 - 108 mmol/L [facility] CO2 TOTAL 25 23 - 31 mmol/L [facility] AGAP 7 2 - 16 [facility] BUN 28 (H) 7 - 23 mg/dL [facility] GLUCOSE 98 70 - 110 mg/dL [facility] CREATININE 1.37 (H) 0.60 - 1.25 [facility] mg/dL [facility] CALCIUM 10.2 8.6 - 10.6 [facility] mg/dL [facility] eGFR Calculation 50.0 mL/min/1.73m2 [facility] ([facility]ORATORY [place]) eGFR Calculation 60.6 mL/min/1.73m2 [facility] () [facility] Specimen Blood - ARM, RIGHT Narrative Performed At Association of Glomerular Filtration Rate (GFR) [facility] and Staging of Kidney Disease* [...] tests). Performing Organization Address City/State/Zipcode Phone Number [facility] CLIA: [id number], [address] [place] [address] URINALYSIS (09/18/2018 6:45 AM CDT) APPEARANCE Slightly Cloudy (A) Clear [facility] COLOR [place] (A) Yellow [facility] PH 5.5 4.8 - 8.0 [facility] SP GRAVITY >=1.030 1.003 - 1.030 [facility] GLU U QUAL Negative Negative [facility] BLOOD Negative Negative [facility] KETONES Trace (A) Negative [facility] PROTEIN 30 mg/dL (A) Negative [facility] UROBILIN 0.2 mg/dL 0-1.0 mg/dL [facility] BILIRUBIN Negative Negative [facility] NITRITE Negative Negative [facility] LEUK LEONEL Negative Negative [facility] RBC/HPF 3 0 - 3 HPF [facility] WBC/HPF 15 (H) 0 - 5 HPF [facility] BACTERIA Moderate (A) Negative [facility] MUCOUS Marked (A) Negative LPF [facility] SQ EPITH 20 HPF [facility] SPERM 1 <=1 HPF [facility] Specimen Urine - URINE, CLEAN CATCH Performing Organization Address City/State/Zipcode Phone Number [facility] CLIA: [id number], [address] [place] [address] documented in this encounter Visit Diagnoses Diagnosis Confusion - Primary Unspecified psychosis documented in this encounter Administered Medications Medication Order MAR Action Action Date Dose Rate Site buPROPion XL (WELLBUTRIN XL) Given 09/21/2018 8:08 AM CDT 150 mg tablet 150 mg 150 mg, Oral, DAILY, First dose on 09/20/18 at 0900, Until Discontinued, Routine Given 09/20/2018 8:02 AM CDT 150 mg levothyroxine (SYNTHROID) tablet 50 mcg Given 09/21/2018 5:21 AM CDT 50 mcg 50 mcg, Oral, QAM-0600, First dose on 09/20/18 at 0600, Until Discontinued, Routine Given 09/20/2018 7:31 AM CDT 50 mcg Medication Order MAR Action Action Date Dose Rate Site aspirin chewable tablet 324 mg Given 09/18/2018 8:38 AM CDT 324 mg 324 mg, Oral, ONCE, 1 dose, Fri09/18/18 at 0930, Routine NaCl 0.9% (NS) bolus infusion New Bag 09/18/2018 7:32 AM CDT 1,000 mL 999 mL/hr 1,000 mL at 999 mL/hr, 1,000 mL, IV Infusion, ONCE, 1 dose, Fri09/18/18 at 0730, ESSENCE documented in this encounter Insurance Payer Benefit Plan / Subscriber ID Effective Phone Address Type Group Dates [employer] MEDICARE [id number] 2016-Prese Medicare Adv HEALTHCARE - COMPLETE nt O MANAGED MEDICARE documented as of this encounter
[2018-11-02] MEDS ORDERED: TETANUS & DIPHTHERIA TOX,ADULT 0.5 ML VIAL ONE (16:57)
[2018-11-02] MEDS ORDERED: NA CHLORIDE 0.9% 1,000 ML ONE (16:57)
[2018-11-02 16:58] LABS: Absolute Lymphocytes (CBC) 0.7 K/uL (0.7-4.9); Basophils % 0.5 % (0-1.3); Hematocrit 38.3 % (39.6-49.0); Lymphocytes % 11.8 % (15.3-44.8); MPV 9.5 fL (7.6-11.3); RBC Red Blood Cell Count 4.74 M/uL (4.33-5.43)
[2018-11-02 17:02] LABS: Protime INR 1.08
--- NOTE | 2018-11-02 17:11 | RAD REPORT ---
EXAM DESCRIPTION: Yuliya Single View11/02/2018 4:58 pm CLINICAL HISTORY: fever COMPARISON: none FINDINGS: The lungs appear clear of acute infiltrate. The heart is mildly enlarged. Aorta is tortuous/ectatic IMPRESSION: No acute abnormalities displayed
--- NOTE | 2018-11-02 17:23 | RAD REPORT ---
EXAM DESCRIPTION: CT - Head Brain Wo Cont - 11/02/2018 5:04 pm CLINICAL HISTORY: Head injury status post fall COMPARISON: None TECHNIQUE: Computed axial tomography of the head was obtained. IV contrast was not requested. All CT scans are performed using dose optimization technique as appropriate and may include automated exposure control or mA/KV adjustment according to patient size. FINDINGS: An intracranial bleed is not seen . The ventricles are normal in caliber. No extra-axial fluid collection is noted. Sliver of curvilinear increased density is present along the left frontal convexity. No mass effect. 3 centimeter posterior right scalp lipoma Fluid within the sinuses/ mastoids is not seen. IMPRESSION: Sliver of increased density along the left frontal convexity either represents a very sm all subdural hematoma or calcification of the dura . MRI brain may be helpful for further evaluation Exam was discussed with Dr. Garcia 5:15 PM November 02, 2018
[2018-11-02 17:32] LABS: Bilirubin Direct 0.2 mg/dL (0-0.2); Bilirubin Total 0.5 mg/dL (0.2-1.0); Potassium 4.1 mmol/L (3.5-5.1); Protein, Total 6.9 g/dL (6.4-8.2); Troponin (Emerg Dept Use Only) 0.02 ng/mL (0.0-0.045)
[2018-11-02] MEDS ORDERED: LIDOCAINE 1% W/EPI 1:100,000 MDV 20 ML VIAL ONE (17:41)
[2018-11-02 17:46] LABS: Urine White Blood Cell Casts OK
[2018-11-02 17:47] LABS: Blood Morphology Comment NOTED (NOT SEEN); Platelet Estimate DECR
[2018-11-02] MEDS ORDERED: HYDROCODONE/APAP 5/325 MG TAB ONE (18:26)
[2018-11-02] MEDS ORDERED: NA CHLORIDE 0.9% 500 ML ONE (19:54)
--- NOTE | 2018-11-02 20:02 | RAD REPORT ---
EXAM DESCRIPTION: RAD - Knee Right 3 View - 11/02/2018 7:37 pm CLINICAL HISTORY: Right knee pain status post injury FINDINGS: No fracture or dislocation is seen. Osteoporosis. 14 millimeter metallic fragment anterior soft tissues operative the
--- NOTE | 2018-11-02 20:11 | ER ---
Nurse's Notes [facility] Name: Jian Jackson Age: 83 yrs Sex: Male : 1935 Arrival Date: 11/02/2018 Time: 15:58 Bed 25 Private MD: Diagnosis: subdural hematoma Presentation: 11/02 15:58 Presenting complaint: EMS states: he is from [facility], he is for rv transfer to a [facility] facility when he tried to escape and run outside, tripped himself and hit his right side of the head causing a laceration. does not complain of any pain other than the head. usually AO x 3, but in and out of it. does not take any blood thinner. no LOC. Transition of care: [facility]. Onset of symptoms was November 02, 2018 at 15:45. Risk Assessment: Do you want to hurt yourself or someone else? Patient reports no desire to harm self or others. Initial Sepsis Screen: Does the patient meet any 2 criteria? No. Patient's initial sepsis screen is negative. Does the patient have a suspected source of infection? No. Patient's initial sepsis screen is negative. Care prior to arrival: None. 15:58 Method Of Arrival: EMS: [facility] rv 15:58 Acuity: SHABANA 3 rv Historical: - Allergies: 16:09 No Known Allergies; rv - Home Meds: 16:09 finasteride 1 mg oral tab 1 tab once daily [Active]; levothyroxine 50 mcg tab 1 tab rv once daily [Active]; multivitamin oral cap [Active]; Wellbutrin 150MG Oral 1 tab daily [Active]; zinc sulfate 220 (50) mg Oral cap 220 mg daily [Active]; - PMHx: 16:09 Dementia; Hypertension; Hypothyroidism; MAJOR DEPRESSIVE DISORDER; BPH; rv - Immunization history:: Adult Immunizations up to date. - Social history:: Smoking status: Patient/guardian denies using tobacco. - Ebola Screening: : No symptoms or risks identified at this time. Screenin:18 Abuse screen: Denies threats or abuse. Denies injuries from another. Nutritional rv screening: No deficits noted. Tuberculosis screening: No symptoms or risk factors identified. Fall Risk None identified. Assessment: 16:13 General: Appears in no apparent distress. Behavior is calm, cooperative. Pain: Denies rv pain. Neuro: Level of Consciousness is confused, Oriented to none. Cardiovascular: Patient's skin is warm and dry. Respiratory: Airway is patent. GI: No signs and/or symptoms were reported involving the gastrointestinal system. : No signs and/or symptoms were reported regarding the genitourinary system. EENT: No signs and/or symptoms were reported regarding the EENT system. Derm: Wound noted outer aspect of right eyebrow Wound is LACERATION. Derm: Wound noted heel of right hand Wound is ABRASION. Musculoskeletal: Swelling present in outer aspect of right eyebrow. 17:30 Reassessment: Patient appears in no apparent distress at this time. Patient and/or rv family updated on plan of care and expected duration. Pain level reassessed. Patient is alert, oriented x 3, equal unlabored respirations, skin warm/dry/pink. 18:30 Reassessment: Patient appears in no apparent distress at this time. Patient and/or rv family updated on plan of care and expected duration. Pain level reassessed. Patient is alert, oriented x 3, equal unlabored respirations, skin warm/dry/pink. 21:15 Reassessment: blood specimen for Lactate sent together with other request at the same rv time at 1635. followed up result after two hours and Maricel of Lab told me that they are running the request at that time and will have the result after 10-15 minutes. after an hour, ED staff received a call that blood specimen needs to be collected for the Lactate request. verified it myself with the lab thru phone call, and sent another specimen for Lactate. awaiting result. 22:26 Reassessment: patient is confused and persistently gets out of bed. assigned a sitter rv at bedside until transfer. given Ativan as ordered. 23:48 Reassessment: patient is calm and sleeping at this time with a sitter inside the room. rv awaiting the EMS for transportation. changed the diaper and bed linen. Vital Signs: 16:03 BP 137 / 94; Pulse 120; Resp 24; Temp 99; Pulse Ox 97% on R/A; Weight 113.4 kg; Height rv 6 ft. 5 in. (195.58 cm); 17:00 BP 144 / 97; Pulse 110; Resp 20; Pulse Ox 98% on R/A; rv 17:30 BP 142 / 91; Pulse 104; Resp 21; Pulse Ox 99% on R/A; rv 18:00 BP 142 / 110; Pulse 102; Resp 18; Pulse Ox 98% on R/A; rv 18:30 BP 140 / 96; Pulse 110; Resp 21; Pulse Ox 99% on R/A; rv 19:30 BP 165 / 106; Pulse 128; Resp 21; Pulse Ox 98% on R/A; rv 20:30 BP 186 / 97; Pulse 125; Resp 20; Pulse Ox 97% on R/A; rv 21:30 BP 131 / 87; Pulse 112; Resp 19; Pulse Ox 97% on R/A; rv 22:29 BP 105 / 67; Pulse 117; Resp 21; Pulse Ox 98% on R/A; rv 11/03 00:05 BP 129 / 58; Pulse 109; Resp 20; Pulse Ox 96% on R/A; rv 11/02 16:03 Body Mass Index 29.65 (113.40 kg, 195.58 cm) rv Yaneli Coma Score: 11/02 19:41 Eye Response: spontaneous(4). Verbal Response: oriented(5). Motor Response: obeys gs commands(6). Total: 15. ED Course: 15:58 Patient arrived in ED. rv 16:03 Triage completed. rv 16:07 Joe Garcia MD is Attending Physician. 16:08 EKG done, by botany technician. reviewed by Demario Pantoja MD. sm3 16:15 Patient placed in the treatment room, on a stretcher, on surgical instrument mechanic, on pulse rv oximetry, Patient notified of wait time. 16:15 Arm band placed on left wrist. EKG completed in triage. Results shown to MD. rv 16:18 Chirag Pham, RN is Primary Nurse. rv 16:18 Patient has correct armband on for positive identification. Bed in low position. Call rv light in reach. Side rails up X 1. Pulse ox on. NIBP on. 16:35 Assist provider with laceration repair on outer aspect of right eyebrow that was 2.5 rv cm. or less using sutures. Set up tray. Patient tolerated well. Inserted saline lock: 18 gauge in left forearm, using aseptic technique. Blood collected. 16:35 First set of blood cultures drawn by nh. rv 16:58 Chest Single View XRAY In Process Unspecified. EDMS 17:06 CT Head Brain wo Cont In Process Unspecified. EDMS 17:15 Second set of blood cultures drawn by me. rv 18:45 Basic Metabolic Panel Sent. rv 19:38 Knee Left 3 View XRAY In Process Unspecified. EDMS 19:38 Knee Right 3 View XRAY In Process Unspecified. EDMS 11/03 00:22 Patient transferred, IV remains in place. rv Administered Medications: 02/09 20:00 Drug: NS 0.9% 1000 ml Route: IV; Rate: 125 ml/hr; Site: left forearm; rv 11/02 22:30 Follow up: IV Status: Completed infusion rv 17:00 Drug: NS 0.9% 1000 ml Route: IV; Rate: 1 bolus; Site: left forearm; rv 18:15 Follow up: IV Status: Completed infusion; IV Intake: 1000ml rv 17:00 Drug: Tetanus-Diphtheria Toxoid Adult 0.5 ml {Park Guard: [employer]. Exp: rv 06/23/2020. Lot #: [id number]. } Route: IM; Site: left deltoid; 18:03 Follow up: Response: No adverse reaction rv 18:02 Drug: Lidocaine-Epinephrine -1%: (1:100,000) 5 ml {Note: given by Jesus/Kun.} Volume: rv 20 ml; Route: Infiltration; 18:30 Drug: [place] 5 mg-325 mg 1 tabs {Note: rass 0.} Route: PO; rv 20:01 Follow up: Response: Pain is decreased; RASS: Alert and Calm (0) rv 22:15 Drug: Ativan 0.5 mg Route: IVP; Site: left forearm; rv 22:29 Follow up: Response: No adverse reaction; patient is calm and sleeping rv Intake: 18:15 IV: 1000ml; Total: 1000ml. rv Outcome: 20:10 ER care complete, transfer ordered by . 11/03 00:21 Transferred by ground EMS to [facility], Transfer form completed. rv X-rays sent w/ patient. Condition: stable Discharge instructions given to family, Instructed on the need for transfer, Demonstrated understanding of instructions. 00:22 Patient left the ED. rv Signatures: Dispatcher [employer] Joe Enriquez MD MD gs Montes, Shakira sm3 Chirag Pham, RN RN rv
--- NOTE | 2018-11-02 20:11 | EDPHYS ---
Physician Documentation [facility] Name: Jian Jackson Age: 83 yrs Sex: Male : 1935 Arrival Date: 11/02/2018 Time: 15:58 Bed 25 Private MD: ED Physician Joe Garcia HPI: 11/02 19:28 This 83 yrs old Male presents to ER via EMS with complaints of fall head gs injury. 19:28 Details of fall: The patient fell from an upright position. Onset: The symptoms/episode gs began/occurred acutely, just prior to arrival. Associated injuries: The patient sustained injury to the head, laceration. Severity of symptoms: At their worst the symptoms were moderate, in the emergency department the symptoms are unchanged. It is unknown whether or not the patient has had similar symptoms in the past. Historical: - Allergies: 16:09 No Known Allergies; rv - Home Meds: 16:09 finasteride 1 mg oral tab 1 tab once daily [Active]; levothyroxine 50 mcg tab 1 tab rv once daily [Active]; multivitamin oral cap [Active]; Wellbutrin 150MG Oral 1 tab daily [Active]; zinc sulfate 220 (50) mg Oral cap 220 mg daily [Active]; - PMHx: 16:09 Dementia; Hypertension; Hypothyroidism; MAJOR DEPRESSIVE DISORDER; BPH; rv - Immunization history:: Adult Immunizations up to date. - Social history:: Smoking status: Patient/guardian denies using tobacco. - Ebola Screening: : No symptoms or risks identified at this time. ROS: 19:28 All other systems are negative. gs Exam: 19:28 Eyes: Pupils equal round and reactive to light, extra-ocular motions intact. Lids and gs lashes normal. Conjunctiva and sclera are non-icteric and not injected. Cornea within normal limits. Periorbital areas with no swelling, redness, or edema. ENT: Nares patent. No nasal discharge, no septal abnormalities noted. Tympanic membranes are normal and external auditory canals are clear. Oropharynx with no redness, swelling, or masses, exudates, or evidence of obstruction, uvula midline. Mucous membranes moist. Neck: Trachea midline, no thyromegaly or masses palpated, and no cervical lymphadenopathy. Supple, full range of motion without nuchal rigidity, or vertebral point tenderness. No Meningismus. Chest/axilla: Normal chest wall appearance and motion. Nontender with no deformity. No lesions are appreciated. Cardiovascular: Regular rate and rhythm with a normal S1 and S2. No gallops, murmurs, or rubs. Normal PMI, no JVD. No pulse deficits. Respiratory: Lungs have equal breath sounds bilaterally, clear to auscultation and percussion. No rales, rhonchi or wheezes noted. No increased work of breathing, no retractions or nasal flaring. Abdomen/GI: Soft, non-tender, with normal bowel sounds. No distension or tympany. No guarding or rebound. No evidence of tenderness throughout. Back: No spinal tenderness. No costovertebral tenderness. Full range of motion. Skin: Warm, dry with normal turgor. Normal color with no rashes, no lesions, and no evidence of cellulitis. MS/ Extremity: Pulses equal, no cyanosis. Neurovascular intact. Full, normal range of motion. 19:28 Constitutional: The patient appears alert, awake. 19:28 Head/face: Noted is a laceration(s), that is superficial, 3 cm(s), of the outer aspect of right eyebrow. 19:28 Neuro: Exam negative for acute changes, focal neuro deficits, Motor: no acute changes. 19:31 Musculoskeletal/extremity: ROM: no acute changes, Circulation is intact in all gs extremities. Joints: the left knee and right knee displays abrasions. 19:53 Skin: multiple small laceration where was cut by glass. gs 20:11 Neuro: Orientation: to person, place, Mentation: able to follow commands, confused, gs Cranial nerves: no acute changes, Motor: moves all fours. Vital Signs: 16:03 BP 137 / 94; Pulse 120; Resp 24; Temp 99; Pulse Ox 97% on R/A; Weight 113.4 kg; Height rv 6 ft. 5 in. (195.58 cm); 17:00 BP 144 / 97; Pulse 110; Resp 20; Pulse Ox 98% on R/A; rv 17:30 BP 142 / 91; Pulse 104; Resp 21; Pulse Ox 99% on R/A; rv 18:00 BP 142 / 110; Pulse 102; Resp 18; Pulse Ox 98% on R/A; rv 18:30 BP 140 / 96; Pulse 110; Resp 21; Pulse Ox 99% on R/A; rv 19:30 BP 165 / 106; Pulse 128; Resp 21; Pulse Ox 98% on R/A; rv 20:30 BP 186 / 97; Pulse 125; Resp 20; Pulse Ox 97% on R/A; rv 21:30 BP 131 / 87; Pulse 112; Resp 19; Pulse Ox 97% on R/A; rv 22:29 BP 105 / 67; Pulse 117; Resp 21; Pulse Ox 98% on R/A; rv 11/03 00:05 BP 129 / 58; Pulse 109; Resp 20; Pulse Ox 96% on R/A; rv 11/02 16:03 Body Mass Index 29.65 (113.40 kg, 195.58 cm) rv Yaneli Coma Score: 11/02 19:41 Eye Response: spontaneous(4). Verbal Response: oriented(5). Motor Response: obeys commands(6). Total: 15. MDM: 16:19 Patient medically screened. 19:31 Differential diagnosis: closed head injury, contusion, fracture, sprain. Data reviewed: vital signs, nurses notes. Counseling: I had a detailed discussion with the patient and/or guardian regarding: the historical points, exam findings, and any diagnostic results supporting the discharge/admit diagnosis, the need to transfer to another facility. 20:11 Response to treatment: the patient's symptoms have markedly improved after treatment. 11/02 16:20 Order name: Basic Metabolic Panel 11/02 16:20 Order name: Blood Culture Adult (2) 11/02 16:20 Order name: CBC with Diff; Complete Time: 18:09 11/02 16:20 Order name: CPK; Complete Time: 18:09 11/02 16:20 Order name: Lactate 11/02 16:20 Order name: LFT's; Complete Time: 18:09 11/02 16:20 Order name: Lipase; Complete Time: 18:09 11/02 16:20 Order name: Procalcitonin; Complete Time: 19:30 11/02 16:20 Order name: Protime (+inr); Complete Time: 17:23 11/02 16:20 Order name: Troponin (emerg Dept Use Only); Complete Time: 18:09 11/02 16:20 Order name: Urine Microscopic Only 11/02 16:22 Order name: Basic Metabolic Panel; Complete Time: 18:09 EDOR 11/02 17:06 Order name: CBC Smear Scan; Complete Time: 18:09 [facility] 11/02 18:19 Order name: Glucose, Ancillary Testing; Complete Time: 19:30 EDOR 11/02 16:20 Order name: Chest Single View XRAY; Complete Time: 17:23 11/02 16:20 Order name: Accucheck; Complete Time: 17:28 11/02 16:20 Order name: Cardiac monitoring; Complete Time: 17:28 11/02 16:20 Order name: EKG - Nurse/Tech; Complete Time: 17:28 11/02 16:20 Order name: IV Saline Lock - Large Bore; Complete Time: 17:29 11/02 16:20 Order name: CT Head Brain wo Cont; Complete Time: 18:09 11/02 17:44 Order name: EKG Electrocardiogram; Complete Time: 17:48 EDOR 11/02 18:23 Order name: Knee Left 3 View XRAY; Complete Time: 20:50 11/02 18:23 Order name: Knee Right 3 View XRAY; Complete Time: 20:50 11/02 21:38 Order name: Urine Culture [facility] 11/02 16:20 Order name: Labs collected and sent; Complete Time: 17:29 11/02 16:20 Order name: O2 Per Protocol; Complete Time: 17:29 11/02 16:20 Order name: O2 Sat Monitoring; Complete Time: 17:29 11/02 16:20 Order name: Urine Dipstick-Ancillary (obtain specimen); Complete Time: 22:49 gs Administered Medications: 02/09 20:00 Drug: NS 0.9% 1000 ml Route: IV; Rate: 125 ml/hr; Site: left forearm; 11/02 22:30 Follow up: IV Status: Completed infusion rv 17:00 Drug: NS 0.9% 1000 ml Route: IV; Rate: 1 bolus; Site: left forearm; rv 18:15 Follow up: IV Status: Completed infusion; IV Intake: 1000ml rv 17:00 Drug: Tetanus-Diphtheria Toxoid Adult 0.5 ml {Cocktail Waitress: [address]. Exp: rv 06/23/2020. Lot #: [id number]. } Route: IM; Site: left deltoid; 18:03 Follow up: Response: No adverse reaction rv 18:02 Drug: Lidocaine-Epinephrine -1%: (1:100,000) 5 ml {Note: given by Jesus/Kun.} Volume: rv 20 ml; Route: Infiltration; 18:30 Drug: [place] 5 mg-325 mg 1 tabs {Note: rass 0.} Route: PO; rv 20:01 Follow up: Response: Pain is decreased; RASS: Alert and Calm (0) rv 22:15 Drug: Ativan 0.5 mg Route: IVP; Site: left forearm; rv 22:29 Follow up: Response: No adverse reaction; patient is calm and sleeping rv Disposition: 11/02/18 20:10 Transfer ordered to [facility]. Diagnosis is subdural hematoma. - Reason for transfer: Higher level of care. - Accepting physician is MET. - Condition is Stable. - Problem is new. - Symptoms are unchanged. Critical care time excluding procedures: 20:11 Critical care time: Bedside Care: 10 minutes, Consultation: 10 minutes, Family gs Intervention: 10 minutes. Total time: 30 minutes Signatures: Dispatcher [employer] EDJoe Martinez MD MD Chirag Pham RN RN rv Corrections: (The following items were deleted from the chart) 11/03 00:22 11/02 20:10 11/02/2018 20:10 Transfer ordered to [facility]. rv Diagnosis is subdural hematoma. Reason for transfer: Higher level of care. Accepting physician is MET. Condition is Stable. Problem is new. Symptoms are unchanged. gs
--- NOTE | 2018-11-02 20:22 | RAD REPORT ---
EXAM DESCRIPTION: RAD - Knee Left 3 View - 11/02/2018 7:37 pm CLINICAL HISTORY: Left knee pain status post injury FINDINGS: No fracture or dislocation is seen. Osteoporosis. Small joint effusion. If the patient continues to have symptoms to suggest an occult fr acture, ligamentous or meniscal injury MRI would be recommended
[2018-11-02 21:35] LABS: Urine Bacteria <20 /HPF (NONE SEEN); Urine Culture Reflex Order REFLEXED; Urine Mucus 2+ /HPF (NONE SEEN)
[2018-11-02] MEDS ORDERED: LORazepam 2 MG/ML VIAL ONE (22:09)
[2018-11-03 01:56] VITALS: TEMP 99
[2018-11-03 02:07] VITALS: BP 129/58; O2SAT 96
--- NOTE | 2018-11-03 08:30 | EKG ---
Test Date: 2018-11-02 Test Time: 16:05:19 Scissors Grinder: DANIEL MEASUREMENT RESULTS: Intervals: Rate: 118 OH: 152 QRSD: 68 QT: 298 QTc: 417 [place]: P: 60 OH: 152 QRS: 0 T: -4 INTERPRETIVE STATEMENTS: Sinus tachycardia Otherwise normal ECG No previous ECG available for comparison Electronically Signed On 11-03-18 08:28:39 CDT by Lupilol Alvarez
== END 2018-11-03 00:22 | disposition short-term general hospital (02) ==
LOC: ER 15:50
DX: S06.5X0A Traumatic subdural hemorrhage without loss of consciousness, initial encounter (principal); W19.XXXA Unspecified fall, initial encounter; Y93.9 Activity, unspecified; Y92.9 Unspecified place or not applicable; Z23 Encounter for immunization; I10 Essential (primary) hypertension; E03.9 Hypothyroidism, unspecified; F03.90 Unspecified dementia, unspecified severity, without behavioral disturbance, psychotic disturbance, mood disturbance, and anxiety; F32.9 Major depressive disorder, single episode, unspecified
CPT/HCPCS: 93005; 87040 ×2; 87088; 85025; 87086; 80048; 36415; 82550; 85610; 82962; 80076; 83605; 81015; 84484; 83690; 84145; 70450; 71045; 73562 ×2; 90471; 90714; 96374; 99285; J7030